=== PATIENT | male | born 1935 | race Caucasian/White ===

== ENCOUNTER 2023-08-12 12:59 | Outpatient (RCR) | payer MEDICARE, SELFPAY ==
[2023-08-12 13:20] VITALS: BMI 23.4
== END 2023-10-27 10:06 | disposition home or self-care (01) ==
LOC: ANHWOC 12:59
PROVIDERS: PCP Family Medicine; Visit Provider Physician Assistant Medical
DX: L89.159 Pressure ulcer of sacral region, unspecified stage (principal)
CPT/HCPCS: 36415; 80053; 82607; 82728; 82746; 83540; 83550; 83615; 83921; 84155; 84165; 84238; 85025; 85046; 99213; G0463

== ENCOUNTER 2023-08-12 15:02 | Outpatient (CLI) | payer MEDICARE, SELFPAY ==
[2023-08-12 15:26] LABS: Basophils Percent Auto 0.3 % (0.2-1.2); Eosinophils Absolute Auto 0.1 K/mm3 (0-0.3); Eosinophils Percent Auto 0.9 % (0-4.4); Hematocrit 22.4 % (42.0-52.0); Immature Granulocyte Absolute 0.04 K/mm3 (0.00-0.031); Immature Granulocyte Percent A 0.6 % (0-0.5); Immature Reticulocyte Fraction 8.5 % (3.0-15.9); Lymphocytes Absolute Auto 0.88 K/mm3 (0.9-3.2); Lymphocytes Percent Auto 13.6 % (18.3-44.2); Mean Corpuscular HGB Conc 31.3 g/dl (32-36); Mean Corpuscular Hemoglobin 33.8 pg (26-34); Mean Corpuscular Volume 108.2 fl (80-100); Mean Platelet Volume 11.2 fl (7.4-10.4); Monocytes Absolute Auto 0.8 K/mm3 (0.1-0.6); Monocytes Percent Auto 12.9 % (2.6-8.5); Neutrophils Absolute Auto 4.7 K/mm3 (1.3-6.7); Neutrophils Percent Auto 71.7 % (45.5-73.1); Platelet Count Result 251 k/mm3 (150-375); Red Blood Count 2.07 M/mm3 (4.6-6.20); Red Cell Distribution Width 18.1 % (11.5-14.5); Reticulocyte Hemoglobin Conten 37.3 pg (28.2-35.7); Reticulocytes Absolute 0.04 M/mm3 (0.02-0.1); White Blood Count 6.5 K/mm3 (4.5-10.0)
[2023-08-12 16:44] LABS: Iron 81 ug/dL (49-181)
[2023-08-12 16:45] LABS: Alanine Aminotransferase 65 U/L (6-50); Albumin Level 3.8 g/dL (3.5-5.1); Alkaline Phosphatase 223 U/L (38-126); Anion Gap 9 mmol/L (8-16); Aspartate Amino Transferase 37 U/L (17-59); Bilirubin,Total 0.7 mg/dL (0.2-1.3); Blood Urea Nitrogen 32 mg/dL (9-20); Calcium 8.4 mg/dL (8.4-10.2); Carbon Dioxide 19 mmol/L (22-30); Chloride 111 mmol/L (98-107); Estimated Glomerular Filt Rate 48; Glucose 137 mg/dL (65-110); Lactate Dehydrogenase 230 U/L (120-246); Potassium 4.1 mmol/L (3.4-5.0); Sodium 139 mmol/L (137-145)
[2023-08-12 16:57] LABS: Percent Iron Saturation 31 % (20-50)
[2023-08-12 17:58] LABS: Folic Acid 6.9 ng/mL (2.76->20); Vitamin B12 > 1000.0 pg/mL (239-931)
[2023-08-14 16:31] LABS: Albumin 3.5 g/dL (3.8-4.8); Alpha 1 Globulin 0.3 g/dL (0.2-0.3); Alpha 2 Globulin 0.7 g/dL (0.5-0.9); Beta 1 Globulin 0.4 g/dL (0.4-0.6); Protein, Total 6.5 g/dL (6.1-8.1)
[2023-08-14 22:43] LABS: Methylmalonic Acid 123 nmol/L (87-318)
[2023-08-15 17:46] LABS: Soluble Transferrin Receptor 0.65 mg/L (0.76-1.76)
== END 2023-08-12 15:03 | disposition home or self-care (01) ==
LOC: ANHLAB 15:05
PROVIDERS: PCP Family Medicine; Visit Provider Internal Medicine Hematology & Oncology
DX: D64.9 Anemia, unspecified (principal)
CPT/HCPCS: 36415; 80053; 82607; 82728; 82746; 83540; 83550; 83615; 83921; 84155; 84165; 84238; 85025; 85046

== ENCOUNTER 2023-08-28 00:27 | Day surgery (SDC) | payer MEDICARE, SELFPAY ==
[2023-08-27 15:04] VITALS: BMI 23.5
--- NOTE | ~2023-08-28 | BM_ITS ---
EXAMINATION: CCL bone marrow asp w bx diag DATE: 08/28/2023 14:59 INDICATION: Chronic anemia. TECHNIQUE: A time-out was performed to verify the patient's name, date of , and procedure to b e performed. The procedure including the risks, benefits, and alternatives was discussed with the pat ient. Risks discussed included bleeding and infection. The patient understood the risks and agreed to proceed. The skin overlying the left ilium was prepped and draped in usual sterile fashion. Anesth etic was administered with 1% lidocaine subcutaneously. Moderate sedation was achieved with 1 mg Vers ed IV and 25 mcg fentanyl IV. An 11 gauge needle was inserted into the ilium with fluoroscopic naomy nce. Bone marrow was aspirated. An 8 gauge needle was then inserted into the ilium with fluoroscopic guidance. A core bone marrow biopsy was obtained. There were no immediate complications. Fluoroscopy exposure time was 0.1 minutes. The total number of images was 3. FINDINGS: Real-time fluoroscopy demonstrates a marker overlying the left posterior superior iliac spi ne. IMPRESSION: 1. Fluoro-guided bone marrow aspiration. 2. Fluoro-guided bone marrow core biopsy. Reviewed, dictated and finalized at location A.
[2023-08-28 07:43] VITALS: BP 138/53; PULSE 60; RESP 16; TEMP 36.7; O2SAT 96; BMI 23.6
[2023-08-28 08:02] LABS: Basophils Percent Auto 0.6 % (0.2-1.2); Eosinophils Absolute Auto 0.2 K/mm3 (0-0.3); Eosinophils Percent Auto 2.8 % (0-4.4); Hemoglobin 7.4 g/dL (14.0-18.0); Immature Granulocyte Absolute 0.03 K/mm3 (0.00-0.031); Immature Granulocyte Percent A 0.6 % (0-0.5); Lymphocytes Absolute Auto 1.09 K/mm3 (0.9-3.2); Lymphocytes Percent Auto 20.6 % (18.3-44.2); Mean Corpuscular HGB Conc 32.2 g/dl (32-36); Mean Corpuscular Hemoglobin 34.3 pg (26-34); Mean Corpuscular Volume 106.5 fl (80-100); Mean Platelet Volume 11.7 fl (7.4-10.4); Monocytes Percent Auto 18.3 % (2.6-8.5); Neutrophils Percent Auto 57.1 % (45.5-73.1); Platelet Count Result 242 k/mm3 (150-375); Red Blood Count 2.16 M/mm3 (4.6-6.20); Red Cell Distribution Width 15.7 % (11.5-14.5); White Blood Count 5.3 K/mm3 (4.5-10.0)
[2023-08-28 08:10] LABS: INR 1.1; Prothrombin Time 14.4 Seconds (11.1-14.7)
[2023-08-28 08:20] LABS: Platelet Estimate Adequate (Adequate)
[2023-08-28 08:21] LABS: Acanthocytes 1+ (NORMAL); Anisocytosis 1+ (NORMAL); Poikilocytosis 1+ (NORMAL); Schistocytes 1+ (NORMAL)
--- NOTE | 2023-08-28 09:02 | WPDMODSED ---
Moderate Sedation Note-Pt Data Patient Data Diagnosis: Chronic anemia. Present Complaint: Chronic anemia. Procedure to be performed/Plan: Fluoro-guided bone marrow biopsy of ilium. Allergies Allergy/AdvReac Type Severity Reaction Status Date / Time No Known Allergies Allergy Unknown Verified 08/28/23 07:41 Home Medications Medication Instructions Recorded Confirmed Type aspirin 81 mg tablet,delayed 81 mg PO DAILY 06/28/22 08/27/23 History release (Adult Low Dose Aspirin) latanoprost 0.005 % eye drops 1 drp EACH EYE DAILY 01/13/23 08/27/23 History blood sugar diagnostic (Accu-Chek #100 ea 03/24/23 08/12/23 Rx Guide test strips) metformin 500 mg tablet,extended 500 mg PO BID #180 tabs 05/06/23 08/27/23 Rx release 24hr metoprolol succinate 25 mg 12.5 mg PO DAILY #90 tabs 05/06/23 08/27/23 Rx tablet,extended release 24 hr tamsulosin 0.4 mg capsule 0.4 mg PO DAILY #90 caps 05/06/23 08/27/23 Rx B12 10,000 mg BYMOUTH DAILY 07/01/23 08/27/23 History D3 1,000 mg BYMOUTH 1XD 07/01/23 08/27/23 History atorvastatin 40 mg tablet 10 mg PO DAILY 08/27/23 08/27/23 History clopidogrel 75 mg tablet 75 mg PO DAILY 08/27/23 08/27/23 History famotidine 20 mg tablet 20 mg PO DAILY 08/27/23 08/27/23 History ferrous sulfate 325 mg (65 mg 325 mg PO DAILY 08/27/23 08/27/23 History iron) tablet (FeroSul) finasteride 5 mg tablet 5 mg PO DAILY 08/27/23 08/27/23 History glimepiride 1 mg tablet 1 mg PO DAILY 08/27/23 08/27/23 History lisinopril 5 mg tablet 5 mg PO DAILY 08/27/23 08/27/23 History pantoprazole 40 mg tablet,delayed 40 mg PO DAILY 08/27/23 08/27/23 History release tadalafil 5 mg tablet 5 mg PO DAILY 08/27/23 08/27/23 History Sedation/Anesthesia: No previous sedation/anesthesia problems (including family history). [facility] Past Medical History Medical History Anemia BPH (benign prostatic hyperplasia) Dementia Diabetes Dyslipidemia GERD (gastroesophageal reflux disease) Hypertension TIA (transient ischemic attack) Family History Family History Mother Diabetes mellitus Sibling Diabetes mellitus Heart disease Social History Social History Smoking status: Never smoker Alcohol intake: current Drinks per week: 1 Alcohol use details: weekly Substance use: never Substance use type: does not use Lack of Transportation: No Lack of Food: Never True Current Housing: I Have Housing Concerned About Future Housing: No Difficulty Paying Gas/Electric Bills: No Difficulty Paying for Meds: No Currently Unemployed: No Education: Bachelor's Degree Difficulty w/ Childcare or Family Care: No Living arrangements: with family Occupation/Education: retired Gender identity (if verbalized by the patient): Male Spiritual care concerns: No Agree to blood products: Yes Mod Sed Physical Exam Physical Exam Pre Procedural Exam: Normal: Appearance, Lungs, Heart Rate, Heart Rhythm and Abdomen Hours since solid foods: 12 Hours since liquid intake: 12 Mallampati Classification: class II Internal Medicine - PN: Obj Da Vital Signs Vital Signs: Vital Signs - 24 hr 08/28/23 07:43 Temperature 36.7 C Pulse Rate 60 Respiratory Rate 16 Blood Pressure 138/53 L Pulse Oximetry 96 Oxygen Delivery Room Air Labs 08/28/23 07:47 Labs: Laboratory Results - last 24 hr 08/28/23 08/28/23 07:46 07:47 WBC 5.3 RBC 2.16 L Hgb 7.4 L Hct 23.0 L MCV 106.5 H MCH 34.3 H MCHC 32.2 RDW 15.7 H Plt Count 242 MPV 11.7 H Immature Gran % (Auto) 0.6 H Neut % (Auto) 57.1 Lymph % (Auto) 20.6 [place] % (Auto) 18.3 H Eos % (Auto) 2.8 Baso % (Auto) 0.6 Lymph # (Auto) 1.09 [place] # (Auto) 1.0 H Eos # (Auto) 0.2 Baso # (Auto) 0.0 Abs Immat Gran (auto) 0.03 Absolute Neuts (auto) 3.0
[2023-08-28 09:40] VITALS: BP 139/59; PULSE 60; RESP 14; O2SAT 98
[2023-08-28 09:45] VITALS: BP 126/60; PULSE 60; RESP 14; O2SAT 97
[2023-08-28 10:00] VITALS: BP 128/59; PULSE 61; RESP 141; O2SAT 98
[2023-08-28 10:30] VITALS: BP 132/66; PULSE 61; RESP 16; O2SAT 97
--- NOTE | 2023-08-28 10:50 | SUR.PHASEII ---
Awake and alert and tolerating po fluids. Vital signs stable. IV d/c intact with drsg applied. Bone marrow biopsy site d/i with pressure drsg. Instructions given
== END 2023-08-28 10:50 | disposition home or self-care (01) ==
PROVIDERS: PCP Family Medicine; Referring Provider Internal Medicine Hematology & Oncology; Visit Provider Radiology Diagnostic Radiology
DX: D64.9 Anemia, unspecified (principal); I48.91 Unspecified atrial fibrillation; E11.9 Type 2 diabetes mellitus without complications; E78.5 Hyperlipidemia, unspecified; F03.90 Unspecified dementia, unspecified severity, without behavioral disturbance, psychotic disturbance, mood disturbance, and anxiety; N40.0 Benign prostatic hyperplasia without lower urinary tract symptoms; I10 Essential (primary) hypertension; K21.9 Gastro-esophageal reflux disease without esophagitis; Z95.0 Presence of cardiac pacemaker; Z86.73 Personal history of transient ischemic attack (TIA), and cerebral infarction without residual deficits; Z79.82 Long term (current) use of aspirin; Z79.84 Long term (current) use of oral hypoglycemic drugs; Z79.02 Long term (current) use of antithrombotics/antiplatelets
CPT/HCPCS: 36415; 38222; 85025; 85610; 88184; 88185; 88305; 88311; 88313; 88341; 88342; J1642; J2250; J3010; J7040

== ENCOUNTER 2023-12-11 07:53 | Outpatient (CLI) | payer MEDICARE, SELFPAY ==
--- NOTE | ~2023-12-11 | CT_ITS ---
EXAMINATION: CT brain wo con DATE: 12/11/2023 08:10 INDICATION: Amnesia TECHNIQUE: Computed tomography (CT) of the head was performed without intravenous contrast. The dose- length product was 605.33 mGy-cm. Automated exposure control and iterative reconstruction technique w ere employed. COMPARISON: None FINDINGS: Generalized atrophy. There are scattered mild periventricular and subcortical white matter changes, most likely related to small vessel ischemic disease (microangiopathy). No acute intracrania l hemorrhage, infarction, mass or mass effect. Basilar cisterns are patent. Paranasal sinuses and mas toids are pneumatized. No depressed skull fractures. IMPRESSION: 1. No acute intracranial abnormality. 2: Chronic age-related findings. Reviewed, dictated and finalized at location L. ER
== END 2023-12-11 07:54 | disposition home or self-care (01) ==
LOC: ANHIMG 07:55
PROVIDERS: PCP Physician Assistant Medical; Visit Provider Student in an Organized Health Care Education/Training Program
DX: R41.3 Other amnesia (principal)
CPT/HCPCS: 70450